=== PATIENT | male | born 1960 | race Caucasian/White ===

== ENCOUNTER 2017-09-29 08:18 | Day surgery (SDC) | payer BC ==
[2017-09-29] MEDS ORDERED: GLUCAGON 1 MG/ML VIAL IVP STA (08:38)
--- NOTE | 2017-09-29 08:41 | ED ---
General Adult HPI - General Source: patient, RN notes reviewed Mode of arrival: ambulatory Limitations: no limitations <Curt Jang - Last Filed: 09/29/17 11:43> <Kelvin So - Last Filed: 09/29/17 12:12> - General Chief complaint: Skin/Abscess/Foreign Body Stated complaint: food stuck in throat Time Seen by Provider: 09/29/17 08:28 - History of Present Illness Initial comments: Patient is a 57-year-old male who presents emergency room today with chief complaint of possible foreign body to esophagus. Patient states that he was seems to 2 days ago he felt something medical record down. He states that since at times difficult time swallowing. She is unable to swallow small amounts of liquid. He does not that he's had some difficulty swallowing at times spitting up. He states since some blood. Denies any other symptoms. Patient denies any recent fever, chills, shortness of breath, chest pain, back pain, numbness or tingling, dysuria or hematuria, constipation or diarrhea, headaches or visual changes, or any other complaints. (Curt Jang) - Related Data Home Medications Medication Instructions Recorded Confirmed Albuterol Sulfate [Proair Hfa] 2 puff INHALATION RT-Q4H PRN 06/29/16 09/29/17 Aspirin 325 mg PO Q48H 06/29/16 09/29/17 buPROPion SR [Wellbutrin Sr] 150 mg PO DAILY 06/29/16 09/29/17 Atorvastatin [Lipitor] 20 mg PO HS 09/29/17 09/29/17 Fluticasone/Vilanterol [Breo 1 puff INHALATION RT-BID 09/29/17 09/29/17 Ellipta 200-25 Mcg INH] Metoprolol Succinate [Toprol Xl] 100 mg PO DAILY 09/29/17 09/29/17 Ranitidine HCl [Zantac] 150 mg PO BID 09/29/17 09/29/17 Sertraline [Zoloft] 100 mg PO BID 09/29/17 09/29/17 Allergies Allergy/AdvReac Type Severity Reaction Status Date / Time No Known Allergies Allergy Verified 09/29/17 08:28 Review of Systems ROS Other: All systems not noted in ROS Statement are negative. <Curt Jang - Last Filed: 09/29/17 11:43> ROS Other: All systems not noted in ROS Statement are negative. <Kelvin So - Last Filed: 09/29/17 12:12> ROS Statement: Those systems with pertinent positive or pertinent negative responses have been documented in the HPI. Past Medical History Past Medical History: COPD, Hypertension Additional Past Medical History / Comment(s): herniated esaphagus History of Any Multi-Drug Resistant Organisms: None Reported Past Surgical History: Appendectomy Past Psychological History: Anxiety Smoking Status: Never smoker Past Alcohol Use History: Daily Past Drug Use History: None Reported <Curt Jang - Last Filed: 09/29/17 11:43> General Exam Limitations: no limitations <Curt Jang - Last Filed: 09/29/17 11:43> <Kelvin So - Last Filed: 09/29/17 12:12> - General Exam Comments Initial Comments: General: The patient is awake and alert, in no distress, and does not appear acutely ill. Eye: Pupils are equal, round and reactive to light, extra-ocular movements are intact. No nystagmus. There is normal conjunctiva bilaterally. No signs of icterus. Ears, nose, mouth and throat: There are moist mucous membranes and no oral lesions. Neck: The neck is supple, there is no tenderness or JVD. Cardiovascular: There is a regular rate and rhythm. No murmur, rub or gallop is appreciated. Respiratory: Lungs are clear to auscultation, respirations are non-labored, breath sounds are equal. No wheezes, stridor, rales, or rhonchi. Musculoskeletal: Normal ROM, no tenderness. Strength 5/5. Sensation intact. Pulses equal bilaterally 2+. Neurological: A&O x 3. CN II-XII intact, There are no obvious motor or sensory deficits. Coordination appears grossly intact. Speech is normal. Skin: Skin is warm and dry and no rashes or lesions are noted. Psychiatric: Cooperative, appropriate mood & affect, normal judgment. (Curt Jang) Course <Curt Jang - Last Filed: 09/29/17 11:43> <Kelvin So - Last Filed: 09/29/17 12:12> Vital Signs 09/29/17 09/29/17 09/29/17 08:21 09:50 10:22 Temperature 97 F L Pulse Rate 106 H 102 H Respiratory 18 20 19 Rate Blood Pressure 166/88 159/84 O2 Sat by Pulse 98 97 Oximetry 09/29/17 09/29/17 10:30 10:48 Temperature Pulse Rate 98 96 Respiratory 20 20 Rate Blood Pressure 159/84 134/80 O2 Sat by Pulse 96 95 Oximetry - Reevaluation(s) Reevaluation #1: 09/29/17 12:11 PA supervision: I did personally do a [id number]-hoeu evaluation the patient did discuss findings with him and his having members. I also did discuss the case with Dr. Oquendo. Patient will be admitted to outpatient procedures for upper endoscopy. I do agree with the assessment and plan. (Kelvin So) Medical Decision Making <Curt Jang - Last Filed: 09/29/17 11:43> <Kelvin So - Last Filed: 09/29/17 12:12> - Medical Decision Making Patient seen here in the emergency room for possible esophageal foreign body. Patient unable to swallow and keep liquids down here in the emergency room. Was given ibuprofen with no relief the symptoms. Discusses in by attending physician Dr. So discussed with Dr. Valdes who will take the patient to ENDO. Patient and family aware. (Curt Jang) Disposition Time of Disposition: 11:44 <Curt Jang - Last Filed: 09/29/17 11:43> <Kelvin So - Last Filed: 09/29/17 12:12> Clinical Impression: Esophageal foreign body Disposition: HOME SELF-CARE Condition: Stable Referrals: Anthony Gresham MD [Primary Care Provider] - 1-2 days
--- NOTE | 2017-09-29 08:59 | XR ---
EXAMINATION TYPE: XR chest 2V DATE OF EXAM: 09/29/2017 COMPARISON: 06/29/2016 HISTORY: Shortness of breath TECHNIQUE: Frontal and lateral views of the chest are obtained. FINDINGS: Scattered senescent parenchymal changes noted. Hyperinflation compatible with COPD. No evidence for infiltrate. No evidence for atelectasis. Heart size is stable. Mediastinal structures are stable and grossly unremarkable. No evidence for hilar prominence. Degenerative changes dorsal spine. IMPRESSION: 1. No evidence for acute pulmonary disease.
[2017-09-29] MEDS ORDERED: FAMOTIDINE 20 MG/2 ML VIAL IV STA (10:33)
[2017-09-29 12:34] VITALS: TEMP 97.8
[2017-09-29] MEDS ORDERED: LACTATED RINGERS 1,000 ML IV ONE (12:34)
[2017-09-29 12:42] VITALS: BMI 27.1
[2017-09-29] MEDS ORDERED: ONDANSETRON 4 MG/2 ML VIAL ONE (13:36)
[2017-09-29] MEDS ORDERED: LIDOCAINE 1% INJ 10MG/ML (20 ML MDV) ONE (13:36)
[2017-09-29] MEDS ORDERED: PROPOFOL 10 MG/ML 20 ML VIAL IV ONE (13:36)
[2017-09-29 14:27] VITALS: BP 119/75; RESP 16
[2017-09-29 14:45] VITALS: PULSE 91
--- NOTE | 2017-09-29 14:46 | P.PCN ---
Date of Procedure: 09/29/17 Procedure(s) Performed: Procedure: Esophagogastroduodenoscopy and biopsy and removal of impacted piece of meat. Preoperative diagnosis: Obstructive dysphagia. Postoperative diagnosis: 1. Impacted piece of meat in the distal esophagus with laceration of the esophageal wall and Hanging clots proximal to the impacted area and bloody secretions. 2. Mild corrugation of the esophagus raising the possibility of eosinophilic esophagitis. 3. Stomach and duodenum within normal limits. 4. Biopsies obtained from the esophagus to rule out eosinophilic esophagitis. Brief clinical history: The patient is a 57-year-old male who presented to the emergency room with the complaint of inability to swallow including inability to swallow his saliva which started around 2 days ago after he ate a piece of steak. The patient apparently has been trying to bring this up, like he has successfully done on similar occasions in the past, when he started to have vomiting of blood which brought him to the emergency room. The patient reported rare episodes of obstructive dysphagia over the last several years that spontaneously resolved without need for endoscopic intervention. This evaluation is to assess for esophageal foreign body and intervene endoscopically. Procedure: With the patient on his left lateral decubitus position and after informed consent and adequate sedation, I passed the Olympus-GIF 160 video upper endoscope through the cricopharyngeus down the esophagus. There was dark bloody secretions in the esophagus which was suctioned and then in the distal esophagus I could see the impacted piece of meat. Proximal to that there was linear esophageal wall laceration with hanging clots. There was some corrugation of the esophagus that raised the possibility of eosinophilic esophagitis. I was able to capture the piece of meat with the snare multiple times, each time able to break a piece of it and bring it out by withdrawing the endoscope then restarting the exam. After multiple such atempts, I was able to advance the impacted piece of meat into the stomach with gentle pressure with the endoscope. The stomach and duodenum were inspected and no obvious abnormalities was seen including any abnormalities in the retroflex view in the cardia. I obtained biopsies from the esophagus prior to withdrawing the endoscope. The patient tolerated the procedure well. Plan: I suggested that the patient stays on clear liquid diet for a day or 2 then stay on full fluids for a day or 2 before advancing to a soft diet. He is to continue his acid suppressive therapy and antireflux diet and measures. I would like to see him in follow-up in one month or so in the office and make further plans based on his course and biopsy results. I might consider repeat endoscopy for the purpose of obtaining additional biopsies or dilation. I will keep you updated on his progress.
== END 2017-09-29 15:18 | disposition home or self-care (01) ==
LOC: EC 08:18 → ORWHC2ENDO 11:43 → EC 11:48 → OR 12:15 → ORWHC2ENDO 15:18 → EC 15:18
DX: T18.128A Food in esophagus causing other injury, initial encounter (principal); K22.8 Other specified diseases of esophagus; I10 Essential (primary) hypertension; J44.9 Chronic obstructive pulmonary disease, unspecified; E78.5 Hyperlipidemia, unspecified; K21.9 Gastro-esophageal reflux disease without esophagitis; Z79.82 Long term (current) use of aspirin; Z79.51 Long term (current) use of inhaled steroids; Z79.899 Other long term (current) drug therapy
CPT/HCPCS: 88305; 71046; 43239; 43247; 99284; 96374; 96375; J1610; J2405; J2001; J2704

== ENCOUNTER → 2022-04-19 | Outpatient (CLI) | payer BC ==
--- NOTE | 2022-04-19 09:00 | US ---
EXAMINATION TYPE: US liver DATE OF EXAM: 04/19/2022 COMPARISON: NONE CLINICAL HISTORY: R94.5 ABN LIVER RESULTS. larger habitus, some complaints of RUQ fullness/tenderness TECHNIQUE: Multiple sonographic images of the right upper quadrant are obtained. 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 Limited abdomen ultrasound. 2. Hepatomegaly with fatty infiltration. 3. Remaining visualized portions appear unremarkable.
== END | disposition home or self-care (01) ==
LOC: RADUSWWP 08:13
PROVIDERS: ATTEND Family Medicine
DX: K76.0 Fatty (change of) liver, not elsewhere classified (principal); R94.5 Abnormal results of liver function studies
CPT/HCPCS: 76705